=== PATIENT | male | born 1985 | race Caucasian/White ===

== ENCOUNTER 2017-04-09 15:11 | Emergency (ER) | payer OTHER ==
[~2017-04-09] VITALS: Ht 182.9 cm; Wt 50.6 kg
[~2017-04-09 15:11] MED LIST: ALBU0.086 NEB; ALBU1AER INH; LORA1TAB PO; TYLE500T PO
[2017-04-09 15:12] VITALS: BP 165/84; PULSE 97; RESP 18; TEMP 98.6; O2SAT 96
[2017-04-09] MEDS ORDERED: DOXY100C PO (18:04)
--- NOTE | 2017-04-09 18:04 | PD ---
HPI . Abscess Chief Complaint: Skin Problem Time Seen by Provider: 17:17 Travel History International Travel<30 days: No Contact w/Intl Traveler<30days: No Traveled to known affect area: No History of Present Illness HPI 32-year-old male patient presents emergency department for evaluation of abscess to posterior aspect of his neck. Patient states it started out as what appeared to be a pimple approximately 4 days ago. 3 days ago he went to [facility] for evaluation and they started him on Bactrim DS twice a day. Patient states the abscess is not getting bigger but it is getting more firm. Patient states he has not been using warm moist compresses. Patient's only major medical history of COPD. Patient denies any fever, chills, malaise. PFSH Past Medical History Asthma: Yes Respiratory: Yes (COPD) Social History Alcohol Use: No Tobacco Use: Yes (1 PPD) Substance Use: No Allergies-Medications (Allergen,Severity, Reaction): Coded Allergies: cortisone (Unverified Allergy, Mild, SWELLING, 12/24/16) Uncoded Allergies: steroids (Adverse Reaction, Intermediate, rapid heart beats, 09/01/14) Reported Meds & Prescriptions Reported Meds & Active Scripts Active Proventil Ud 0.083% (2.5 Mg/3 Ml) (Albuterol Sulfate) 2.5 Mg/3 Ml Inha 2.5 Mg NEB Q6HR NEB Proair Hfa (Albuterol Sulfate) 8.5 Gm Aero 2 Puff INH Q4H PRN * SHAKE WELL BEFORE USE * Reported Tylenol (Acetaminophen) 500 Mg Tab 500 Mg PO Q6H Lorazepam 1 Mg Tab 1 Tab PO TID Review of Systems Except as stated in HPI: all other systems reviewed are Neg Physical Exam Narrative GENERAL: Well-nourished, well-developed 32-year-old male patient in no acute distress. Nontoxic appearing. SKIN: There is an indurated area in the posterior aspect of the neck which measures about 2 cm in diameter. It is indurated with no pointing or drainage. There is a zone of inflammation around it but no lymphangitis. HEAD: Normocephalic. Atraumatic. EYES: No scleral icterus. No injection or drainage. NECK: Supple, trachea midline. No JVD or lymphadenopathy. CARDIOVASCULAR: Regular rate and rhythm without murmurs, gallops, or rubs. RESPIRATORY: Breath sounds equal bilaterally. No accessory muscle use. GASTROINTESTINAL: Abdomen soft, non-tender, nondistended. MUSCULOSKELETAL: No cyanosis, or edema. Data Data Last Documented VS Vital Signs Date Time Temp Pulse Resp B/P (MAP) Pulse Ox O2 Delivery O2 Flow Rate FiO2 04/09/17 15:12 98.6 97 18 165/84 (111) 96 Room Air MDM Medical Decision Making Medical Screen Exam Complete: Yes Emergency Medical Condition: Yes Differential Diagnosis Differential diagnoses include but not limited to abscess, cellulitis, dermatitis Narrative Course 32-year-old male patient presents for evaluation of an abscess to the posterior aspect of his back. Patient is placed on Bactrim DS 3 days ago by another facility. Patient denies any fever, chills, malaise. Patient states that the abscess is not getting better but it is getting more firm. Patient denies to continue the Bactrim DS, start using warm moist compress to the area and doxycycline added to his medication regimen. Patient advised to return the emergency Department in 2-3 days for wound recheck but return sooner with any signs of and increasing infection. Diagnosis Primary Impression: Abscess Referrals: Primary Care Physician Patient Instructions: Abscess (ED), General Instructions Additional Instructions: Please return to emergency department if your symptoms return or worsen. Follow up with your primary care provider. Take medications as prescribed. You can try to use warm compresses to the area to see if a head develops. If it does, you can come back to the emergency department to have it drained. A use [id number] ibuprofen as needed for pain or swelling. Med/Other Pt SpecificInfo: Prescription(s) given Scripts Doxycycline Hyclate (Doxycycline Hyclate) 100 Mg Cap 100 MG PO BID for Infection for 7 Days, #14 CAP 0 Refills Prov: Noni Mojica June CLAY 04/09/17 Disposition: 01 DISCHARGE HOME Condition: Stable Noni Mojica June CLAY Apr 09, 2017 18:04
== END 2017-04-09 18:20 | disposition home or self-care (01) ==
LOC: NEPK 15:11
DX: L02.11 Cutaneous abscess of neck (principal); J44.9 Chronic obstructive pulmonary disease, unspecified; F17.200 Nicotine dependence, unspecified, uncomplicated; Z79.899 Other long term (current) drug therapy; Z88.5 Allergy status to narcotic agent
CPT/HCPCS: 99283